=== PATIENT | male | born 1975 | race Caucasian/White ===

== ENCOUNTER 2020-06-25 04:15 | Emergency (ER) | payer BC ==
[~2020-06-25] VITALS: Ht 177.8 cm; Wt 102.9 kg
[2020-06-25] MEDS ORDERED: ACET-838 PO (04:22)
[2020-06-25] MEDS ORDERED: TIZA4CAP PO (04:22)
[2020-06-25] MEDS ORDERED: ACET-683 PO (04:27)
[2020-06-25] MEDS ORDERED: KETOROLAC 30 MG/ML 1ML VIAL IV ONE (05:15)
[2020-06-25] MEDS ORDERED: METHOCARBAMOL 1,000 MG/10 ML VIAL (J2800) IV ONE (05:15)
[2020-06-25] MEDS ORDERED: LIDOCAINE 5% (LIDODERM) PATCH TD ONE (05:15)
[2020-06-25] MEDS ORDERED: NAPR-837 PO (06:45)
[2020-06-25] MEDS ORDERED: LIDO5DIS41 TD (06:45)
[2020-06-25] MEDS ORDERED: ROBA750T4 PO (06:45)
[2020-06-25 07:20] VITALS: BP 128/84
[2020-06-25] MEDS ORDERED: **NOTE PATIENT COMMENT** MISC XX SCH (21:00)
== END 2020-06-25 07:22 | disposition home or self-care (01) ==
LOC: M ED 04:15
DX: M54.5 Low back pain (principal)
CPT/HCPCS: 96374; 96375; 99284; J1885; J2800

== ENCOUNTER → 2021-07-13 | Outpatient (CLI) | payer BC ==
[~2021-07-13] MED LIST: ACET-683 PO; ACET32TAB PO; LIDO5DIS41 TD; NAPR-837 PO; ROBA750T4 PO; TIZA4CAP PO
== END ==
LOC: M LABSMTC 12:57
PROVIDERS: ATTEND Pediatrics
DX: Z20.822 Contact with and (suspected) exposure to COVID-19 (principal)
CPT/HCPCS: C9803; U0003